=== PATIENT | male | born 1970 ===

== ENCOUNTER 2017-11-30 13:55 | Emergency (ER) | payer OTHER ==
[2017-11-30 14:09] VITALS: TEMP 98.8
--- NOTE | 2017-11-30 14:20 | ED PDOC ---
Arrival/HPI - General Chief Complaint: Lower Extremity Problem/Injury Time Seen by Provider: 11/30/17 14:12 Historian: Patient - History of Present Illness Time/Duration: Other (5 days) Symptom Onset: Gradual Symptom Course: Unchanged Quality: Aching Severity Level: Moderate Associated Symptoms (Text): 11/30/17 14:18 Patient complains of a five-day history of left knee pain and swelling. He denies any injury or trauma, though he works on the [place] doing heavy work. No fever or chills. No hip or ankle pain. No warmth. He has never experienced this previously. He is able to bear weight. Past Medical History - Cardiac Hx Cardiac Disorders: No - Pulmonary Hx Respiratory Disorders: No - Neurological Hx Neurological Disorder: No - HEENT Hx HEENT Disorder: No - Renal Hx Renal Disorder: No - Endocrine/Metabolic Hx Endocrine Disorders: No - Hematological/Oncological Hx Blood Disorders: No - Integumentary Hx Dermatological Disorder: No - Musculoskeletal/Rheumatological Hx Musculoskeletal Disorders: No - Gastrointestinal Hx Gastrointestinal Disorders: Yes Hx Gastroesophageal Reflux: Yes - Genitourinary/Gynecological Hx Genitourinary Disorders: No - Psychiatric Hx Psychophysiologic Disorder: No Hx Substance Use: No - Surgical History Other/Comment: INTESTINE - Anesthesia Hx Anesthesia: Yes Family/Social History - Physician Review Nursing Documentation Reviewed: Yes Family/Social History: Unknown Family HX Smoking Status: Light Smoker < 10 Cigarettes Daily Hx Alcohol Use: Yes Frequency of alcohol use: Daily Hx Substance Use: No Allergies/Home Meds Allergies/Adverse Reactions: Allergies No Known Allergies Allergy (Verified 11/30/17 14:04) Home Medications: Home Meds Medication Instructions Recorded Confirmed Omeprazole [Omeprazole] 40 mg PO DAILY 11/30/17 11/30/17 Review of Systems - Physician Review All systems were reviewed & negative as marked: Yes - Review of Systems Constitutional: absent: Fatigue, Fevers Musculoskeletal: Joint Swelling. absent: Arthralgias, Back Pain, Neck Pain, Myalgias Skin: absent: Rash Neurological: absent: Focal Weakness Physical Exam Vital Signs Temp Pulse Resp BP Pulse Ox 11/30/17 15:06 98.8 F 80 18 135/83 99 11/30/17 14:05 98.8 F 84 16 137/85 98 Temperature: Afebrile Blood Pressure: Normal Pulse: Regular Respiratory Rate: Normal Appearance: Positive for: Well-Appearing, Non-Toxic, Uncomfortable Pain Distress: Mild Mental Status: Positive for: Alert and Oriented X 3 - Systems Exam Neck: Present: Normal Range of Motion Back: Present: Normal Inspection Upper Extremity: Present: Normal Inspection. No: Cyanosis, Edema Lower Extremity: Present: Normal Inspection, NORMAL PULSES, Normal ROM, Tenderness, Swelling, Neurovascularly Intact, Other (Left knee is swollen and tender with a small effusion. No erythema or warmth. He is able to weight-bear. Full range of motion.). No: Edema, CALF TENDERNESS, Cyanosis, Megan's Sign, Erythema, Deformity, Temperature Abnormalties Neurological: Present: GCS=15, CN II-XII Intact, Speech Normal, Motor Func Grossly Intact Skin: Present: Warm, Dry, Normal Color. No: Rashes Medical Decision Making ED Course and Treatment: 11/30/17 15:31 Pain has improved post Toradol. CRP is a send out. ESR is pending. His other blood work is unremarkable. X-rays are unremarkable. PROCEDURE: Left Knee Radiographs. Dictator : Sharath Singletary MD Report Date : 11/30/2017 15:31:42 IMPRESSION: Normal radiographs of the left knee. 11/30/17 16:03 ESR is normal. Patient is feeling better. Will be treated as a sprain. Follow- up with PMD and orthopedist. Follow up in ER as needed. - Lab Interpretations Lab Results: 11/30/17 14:36 11/30/17 14:36 Lab Results 11/30/17 14:36: Sodium 140, Potassium 4.1, Chloride 106, Carbon Dioxide 25, Anion Gap 13, BUN 10, Creatinine 0.7 L, Est GFR ( Amer) > 60, Est GFR ( Non-Af Amer) > 60, Random Glucose 119 H, Uric Acid 4.7, Calcium 9.2, Magnesium 1.8, Total Bilirubin 0.6, AST 22, ALT 16, Alkaline Phosphatase 73, C-Reactive Protein Pending, Total Protein 6.6, Albumin 3.8, Globulin 2.8, Albumin/Globulin Ratio 1.4 11/30/17 14:36: WBC 6.3, RBC 4.31, Hgb 14.8, Hct 41.1 L, MCV 95.4, MCH 34.3, MCHC 36.0, RDW 13.2, Plt Count 221, MPV 9.0, Gran % 64.2, Lymph % (Auto) 26.2, [place] % (Auto) 6.6 H, Eos % (Auto) 2.7, Baso % (Auto) 0.3, Gran # 4.01, Lymph # ( Auto) 1.6, [place] # (Auto) 0.4, Eos # (Auto) 0.2, Baso # (Auto) 0.02, ESR 10 - RAD Interpretation Radiology Orders: 11/30/17 14:17 KNEE LEFT 2 VIEWS (AP & LAT) [RAD] Stat X-ray left knee shows no fracture or dislocation. Director Of Strategic Partnerships: ED Physician - Medication Orders Current Medication Orders: Discontinued Medications Ketorolac Tromethamine (Toradol) 15 mg IVP STAT STA Stop: 11/30/17 14:18 Last Admin: 11/30/17 14:38 Dose: 15 mg MAR Pain Assessment Document 11/30/17 14:38 [place] (Rec: 11/30/17 14:39 [facility] Pain Reassessment Is this a pain reassessment? No Sleep Is patient sleeping during reassessment? No Presence of Pain Presence of Pain Yes Pain Scale Used Pain Scale Used Numeric Location Left, Right or Bilateral Left Pain Location Body Site Knee Description Intensity of Pain at present 10 IVP Administration Document 11/30/17 14:38 [place] (Rec: 11/30/17 14:39 [facility]) Charges for Administration # of IVP Administrations 1 Disposition/Present on Arrival - Present on Arrival Any Indicators Present on Arrival: No History of DVT/PE: No History of Uncontrolled Diabetes: No Urinary Catheter: No History of Decub. Ulcer: No History Surgical Site Infection Following: None - Disposition Have Diagnosis and Disposition been Completed?: Yes Diagnosis: Knee sprain Disposition: HOME/ ROUTINE Disposition Time: 16:03 Patient Plan: Discharge Condition: GOOD Discharge Instructions (ExitCare): Knee Sprain (DC) Additional Instructions: Rest moist heat and elevation. Follow-up with PMD and orthopedist. Follow up in ER as needed. Prescriptions: Naproxen [Naprosyn] 500 mg PO BID #14 tab Forms: [employer] (Romanian), WORK NOTE
[2017-11-30 14:56] LABS: BASO # 0.02 K/mm3 (0.0-2.0); BASO % 0.3 % (0.0-3.0); EOS # 0.2 (0.0-0.7); EOS % 2.7 % (1.5-5.0); GRAN # 4.01 (1.4-6.5); GRAN % 64.2 % (50.0-68.0); HEMOGLOBIN 14.8 g/dL (14.0-18.0); LYMPH # 1.6 (1.2-3.4); LYMPH % 26.2 % (22.0-35.0); MEAN CELL VOLUME 95.4 fl (80.0-105.0); MEAN CORPUSCULAR HEMOGLOBIN 34.3 pg (25.0-35.0); MONO # 0.4 (0.1-0.6); MONO % 6.6 % (1.0-6.0); RBC 4.31 10^6/uL (3.5-6.1); RED CELL DISTRIBUTION WIDTH 13.2 % (11.5-14.5); WHITE BLOOD COUNT 6.3 10^3/ul (4.5-11.0)
[2017-11-30 15:04] LABS: ALB/GLOB RATIO 1.4 (1.1-1.8); ALBUMIN 3.8 g/dL (3.0-4.8); ALT/SGPT 16 U/L (7-56); AST/SGOT 22 U/L (17-59); BLOOD UREA NITROGEN 10 mg/dL (7-21); CALCIUM 9.2 mg/dL (8.4-10.5); GFR AFRICAN-AMERICAN > 60; GFR NON-AFRICAN AMERICAN > 60; URIC ACID 4.7 mg/dL (3.5-8.5)
[2017-11-30 15:07] VITALS: PULSE 80; RESP 18; O2SAT 99
--- NOTE | 2017-11-30 15:33 | RAD ---
Date of service: 11/30/2017 PROCEDURE: Left Knee Radiographs. HISTORY: Pain. COMPARISON: None. FINDINGS: BONES: Normal. No fracture. JOINTS: Normal. No osteoarthritis. JOINT EFFUSION: None. OTHER FINDINGS: None. IMPRESSION: Normal radiographs of the left knee.
[2017-11-30 16:16] VITALS: BP 130/80
== END 2017-11-30 16:13 | disposition home or self-care (01) ==
LOC: ED 13:55
DX: S83.92XA Sprain of unspecified site of left knee, initial encounter (principal); X58.XXXA Exposure to other specified factors, initial encounter; F17.210 Nicotine dependence, cigarettes, uncomplicated
CPT/HCPCS: 73560; 80053; 83735; 84550; 85025; 85651; 86140; 96374; 99284; J1885